=== PATIENT | female | born 1955 | race Caucasian/White ===

== ENCOUNTER 2019-06-08 21:16 | Inpatient (IN) ==
[2019-06-09] MEDS ORDERED: Naloxone 0.4 MG/ML INJ IVP PRN ×2 (06:04→10:18)
[2019-06-09] MEDS ORDERED: 0.9 % Sodium Chloride 1,000 ML IVC SCH ×2 (06:15→10:18)
[2019-06-09] MEDS ORDERED: Ondansetron 4 MG/2 ML VIAL IVP PRN ×2 (06:29→10:18)
[2019-06-09] MEDS ORDERED: Gentamicin 90 MG in 0.9 % Sodium Chloride 100 ML IVPB ONE (06:48)
[2019-06-09] MEDS ORDERED: *HR* Midazolam HCl 2 MG/2 ML VIAL ONE (07:25)
[2019-06-09] MEDS ORDERED: *HR* FentaNYL (PF) 100 MCG/2 ML VIAL ONE (07:25)
[2019-06-09] MEDS ORDERED: *HR* Propofol 200 MG/20 ML VIAL IVP ONE (07:25)
[2019-06-09] MEDS ORDERED: Ondansetron 4 MG/2 ML VIAL ONE ×2 (07:28→08:34)
[2019-06-09] MEDS ORDERED: Lidocaine -MPF 2% 2 ML VIAL ONE (07:28)
[2019-06-09] MEDS ORDERED: Isovue-300 50ML VIAL ONE (07:35)
[2019-06-09] MEDS ORDERED: Scopolamine Patch 1.5 MG PATCH.TD72 ONE (07:50)
[2019-06-09] MEDS ORDERED: Acetaminophen IV 1,000 MG/100 ML INFUS..BTL ONE (07:50)
[2019-06-09] MEDS ORDERED: *HR* Promethazine 25 MG/ML VIAL IVP PRN (07:50)
[2019-06-09] MEDS ORDERED: Morphine Sulfate 2 MG/ML SYRINGE IVP PRN (07:50)
[2019-06-09] MEDS ORDERED: cefTRIAXone 1,000 MG in Water for inj. (sterile) 10 ML IVP SCH (09:00)
[2019-06-09] MEDS ORDERED: *HR* Labetalol 20 MG/4 ML SYRINGE IVP PRN (09:15)
[2019-06-09] MEDS ORDERED: *HR* Labetalol 20 MG/4 ML SYRINGE IVP ONE (09:18)
[2019-06-09] MEDS ORDERED: Gentamicin 1 EACH in 0.9 % Sodium Chloride 100 ML IVPB SCH (10:18)
[2019-06-09] MEDS ORDERED: hydrALAZINE 25 MG TABLET PO PRN (10:18)
[2019-06-09] MEDS: Furosemide 40 MG TABLET PO SCH (10:33)
[2019-06-09] MEDS: amLODIPine 5 MG TABLET PO SCH (10:33)
[2019-06-09] MEDS: Venlafaxine XR (24 HR) 75 MG CAP.ER.24H PO SCH (10:33)
[2019-06-09] MEDS: LAMOTRIGINE PO SCH (11:33)
[2019-06-09 12:45] LABS: Hematocrit 35.7 % (35.3-44.9); Hemoglobin 12.1 g/dL (11.5-15.4); Mean Corpuscular HGB Conc 33.9 g/dL (31.6-35.5); Mean Corpuscular Hemoglobin 29.3 pg (28.0-33.3); Mean Corpuscular Volume 86.4 fL (83.0-100.0); Mean Platelet Volume 8.2 fL (9.4-12.4); Platelet Count 366 K/mcL (140-400); Red Blood Count 4.13 M/mcL (3.82-4.97); Red Cell Distribution Width 15.1 % (11.5-14.5); White Blood Count 7.1 K/mcL (4.3-11.1)
[2019-06-09 13:05] LABS: Alanine Aminotransferase 11 Units/L (7-52); Albumin 3.4 g/dL (3.5-5.7); Alkaline Phosphatase 87 Units/L (34-104); Aspartate Amino Transferase 17 Units/L (13-39); BUN/Creatinine Ratio 28 (6-26); Bilirubin,Total 0.3 mg/dL (0.3-1.0); Blood Urea Nitrogen 18 mg/dL (8-23); Calcium 8.5 mg/dL (8.6-10.3); Carbon Dioxide 22 mEq/L (23-29); Chloride 111 mEq/L (98-107); Globulin 3.5 g/dL (2.4-3.5); Glucose 109 mg/dL (70-105); Magnesium 1.7 mg/dL (1.6-2.6); Osmolality,Calculated 294 (280-300); Phosphorous 3.6 mg/dL (2.7-4.5); Potassium 3.6 mEq/L (3.5-5.1); Sodium 141 mEq/L (136-145); Total Protein 6.9 g/dL (6.4-8.9); eGFR For African Americans > 60 (> 60); eGFR For Non-African Americans > 60 (> 60)
[2019-06-09] MEDS ORDERED: GENTAMICIN IVPB ONE (13:06)
[2019-06-09] MEDS ORDERED: SODIUM CHLORIDE 0.9% IVPB ONE (13:06)
[2019-06-09] MEDS: 0.9 % Sodium Chloride 1,000 ML IVC SCH ×2 (14:34→23:32)
[2019-06-09] MEDS: Acetaminophen 325 MG TABLET PO PRN (20:05)
[2019-06-10 02:11] LABS: BUN/Creatinine Ratio 23 (6-26); Blood Urea Nitrogen 15 mg/dL (8-23); Calcium 8.2 mg/dL (8.6-10.3); Carbon Dioxide 21 mEq/L (23-29); Chloride 111 mEq/L (98-107); Glucose 80 mg/dL (70-105); Osmolality,Calculated 288 (280-300); Potassium 3.3 mEq/L (3.5-5.1); Sodium 139 mEq/L (136-145); eGFR For African Americans > 60 (> 60); eGFR For Non-African Americans > 60 (> 60)
[2019-06-10] MEDS ORDERED: cefTRIAXone 1,000 MG in 0.9 % Sodium Chloride Mini Bag 100 ML IVPB SCH (09:00)
[2019-06-10] MEDS: Venlafaxine XR (24 HR) 75 MG CAP.ER.24H PO SCH (09:50)
[2019-06-10] MEDS: Furosemide 40 MG TABLET PO SCH (09:50)
[2019-06-10] MEDS: amLODIPine 5 MG TABLET PO SCH (09:50)
[2019-06-10] MEDS: LAMOTRIGINE PO SCH (09:52)
[2019-06-10] MEDS: Acetaminophen 325 MG TABLET PO PRN ×2 (11:08→17:20)
[2019-06-10] MEDS ORDERED: *HR* LORazepam 0.5 MG TABLET PO ONE (23:25)
[2019-06-11 05:52] LABS: Basophils % 0.4 %; Eosinophils # 0.5 K/mcL (0.0-0.6); Eosinophils % 6.6 %; Hematocrit 36.4 % (35.3-44.9); Immature Granulocytes % 0.4 % (0-4); Lymphocytes # 1.9 K/mcL (0.6-4.6); Lymphocytes % 22.6 %; Mean Corpuscular Hemoglobin 29.4 pg (28.0-33.3); Mean Corpuscular Volume 89.2 fL (83.0-100.0); Mean Platelet Volume 8.8 fL (9.4-12.4); Monocytes # 0.6 K/mcL (0.0-1.3); Monocytes % 7.3 %; Neutrophils # 5.2 K/mcL (1.6-8.9); Platelet Count 325 K/mcL (140-400); Red Blood Count 4.08 M/mcL (3.82-4.97); Red Cell Distribution Width 14.6 % (11.5-14.5); Segmented Neutrophils % 62.7 %; White Blood Count 8.2 K/mcL (4.3-11.1)
[2019-06-11 06:09] LABS: BUN/Creatinine Ratio 25 (6-26); Blood Urea Nitrogen 15 mg/dL (8-23); Calcium 8.8 mg/dL (8.6-10.3); Carbon Dioxide 21 mEq/L (23-29); Chloride 107 mEq/L (98-107); Glucose 99 mg/dL (70-105); Osmolality,Calculated 289 (280-300); Potassium 3.7 mEq/L (3.5-5.1); Sodium 139 mEq/L (136-145); eGFR For African Americans > 60 (> 60); eGFR For Non-African Americans > 60 (> 60)
[2019-06-11] MEDS ORDERED: Aminoglycoside Consult 1 EACH MC ONE (07:56)
[2019-06-11] MEDS: Furosemide 40 MG TABLET PO SCH (08:38)
[2019-06-11] MEDS: amLODIPine 5 MG TABLET PO SCH (08:38)
[2019-06-11] MEDS: Venlafaxine XR (24 HR) 75 MG CAP.ER.24H PO SCH (08:38)
[2019-06-11] MEDS: LAMOTRIGINE PO SCH (08:39)
[2019-06-11] MEDS ORDERED: Gentamicin 290 MG in 0.9 % Sodium Chloride 100 ML IVPB SCH (14:00)
[2019-06-11] MEDS: Nitrofurantoin (BID) 100 MG CAPSULE PO SCH (17:35)
[2019-06-11] MEDS: Cefepime HCl 2,000 MG in Water for inj. (sterile) 20 ML IVP SCH (17:35)
[2019-06-11] MEDS: Acetaminophen 325 MG TABLET PO PRN (19:46)
[2019-06-12] MEDS: Cefepime HCl 2,000 MG in Water for inj. (sterile) 20 ML IVP SCH ×2 (05:09→07:56)
[2019-06-12] MEDS: Acetaminophen 325 MG TABLET PO PRN (05:12)
[2019-06-12 07:23] VITALS: BP 138/80
[2019-06-12] MEDS ORDERED: *HR* LORazepam 0.5 MG TABLET PO SCH (08:30)
[2019-06-12] MEDS: Nitrofurantoin (BID) 100 MG CAPSULE PO SCH ×2 (10:57→17:19)
[2019-06-12] MEDS: Furosemide 40 MG TABLET PO SCH (10:58)
[2019-06-12] MEDS: Venlafaxine XR (24 HR) 75 MG CAP.ER.24H PO SCH (10:58)
[2019-06-12] MEDS: amLODIPine 5 MG TABLET PO SCH (10:58)
[2019-06-12] MEDS ORDERED: Cefepime HCl 2,000 MG in Water for inj. (sterile) 20 ML IVP ONE (13:00)
== END 2019-06-12 18:10 | DRG 854 ==
LOC: 3ANU → SUATTDRO 06-09 01:32 → 3ANU 06-09 01:42
PROVIDERS: ADMIT Family Medicine; ATTEND Internal Medicine

== ENCOUNTER 2020-01-05 07:02 | Inpatient (IN) ==
[2020-01-05] MEDS ORDERED: Ondansetron 4 MG/2 ML VIAL IVP PRN (10:47)
[2020-01-05] MEDS ORDERED: Naloxone 0.4 MG/ML INJ IVP PRN (10:47)
[2020-01-05] MEDS ORDERED: D5% in Water 1,000 ML IVC PRN (10:51)
[2020-01-05] MEDS ORDERED: Dextrose Gel 15 GM/37.5 ML TUBE PO PRN ×2 (10:51)
[2020-01-05] MEDS ORDERED: *HR* Dextrose 50 % in Water (Vial) 50 ML VIAL IVP PRN (10:51)
[2020-01-05] MEDS ORDERED: Ringers Solution, Lactated 1,000 ML IVC SCH ×2 (11:00→11:09)
[2020-01-05] MEDS ORDERED: D5% in 0.45% NACL 1,000 ML IVC SCH (11:00)
[2020-01-05] MEDS: *HR* Labetalol 20 MG/4 ML SYRINGE IVP SCH ×2 (11:49→17:36)
[2020-01-05] MEDS: Pantoprazole 40 MG VIAL IVP SCH (11:49)
[2020-01-05 12:14] LABS: INR 0.9; Prothrombin Time 10.6 Seconds (9.4-12.1)
[2020-01-05 12:28] LABS: Alanine Aminotransferase 10 Units/L (7-52); Alkaline Phosphatase 90 Units/L (34-104); Aspartate Amino Transferase 17 Units/L (13-39); BUN/Creatinine Ratio 43 (6-26); Bilirubin,Total 0.2 mg/dL (0.3-1.0); Blood Urea Nitrogen 28 mg/dL (8-23); Calcium 8.8 mg/dL (8.6-10.3); Carbon Dioxide 21 mEq/L (23-29); Chloride 102 mEq/L (98-107); Globulin 3.9 g/dL (2.4-3.5); Glucose 198 mg/dL (70-105); Magnesium 1.7 mg/dL (1.6-2.6); Osmolality,Calculated 295 (280-300); Phosphorous 2.7 mg/dL (2.7-4.5); Potassium 3.4 mEq/L (3.5-5.1); Sodium 137 mEq/L (136-145); Total Protein 7.9 g/dL (6.4-8.9); eGFR For African Americans > 60 (> 60); eGFR For Non-African Americans > 60 (> 60)
[2020-01-05] MEDS: Insulin LISPRO 300 UNITS/3 ML VIAL SQ SCH ×2 (13:34→17:32)
[2020-01-05] MEDS ORDERED: *HR* Metoprolol 5 MG/5 ML VIAL IVP ONE (18:13)
[2020-01-06] MEDS: *HR* Labetalol 20 MG/4 ML SYRINGE IVP SCH ×4 (00:02→18:49)
[2020-01-06] MEDS: Insulin LISPRO 300 UNITS/3 ML VIAL SQ SCH ×4 (00:08→18:50)
[2020-01-06 01:13] LABS: Basophils % 0.3 %; Eosinophils % 0.3 %; Hematocrit 31.7 % (35.3-44.9); Hemoglobin 10.2 g/dL (11.5-15.4); Immature Granulocytes % 0.5 % (0-4); Lymphocytes % 19.6 %; Mean Corpuscular HGB Conc 32.2 g/dL (31.6-35.5); Mean Corpuscular Hemoglobin 26.8 pg (28.0-33.3); Mean Corpuscular Volume 83.4 fL (83.0-100.0); Mean Platelet Volume 8.6 fL (9.4-12.4); Monocytes # 0.9 K/mcL (0.0-1.3); Monocytes % 8.6 %; Neutrophils # 7.3 K/mcL (1.6-8.9); Platelet Count 422 K/mcL (140-400); Red Cell Distribution Width 14.8 % (11.5-14.5); Segmented Neutrophils % 70.7 %; White Blood Count 10.4 K/mcL (4.3-11.1)
[2020-01-06] MEDS: Pantoprazole 40 MG VIAL IVP SCH (08:15)
[2020-01-06] MEDS ORDERED: Lidocaine -MPF 2% 2 ML VIAL ONE ×2 (08:49→14:49)
[2020-01-06] MEDS ORDERED: *HR* Propofol 200 MG/20 ML VIAL IVP ONE ×2 (08:49→14:44)
[2020-01-06] MEDS ORDERED: Famotidine 20 MG/2 ML VIAL IVP ONE (09:10)
[2020-01-06] MEDS ORDERED: *HR* Succinylcholine 200 MG/10 ML VIAL IVP ONE (09:57)
[2020-01-06] MEDS ORDERED: Lidocaine -MPF 4% 5 ML AMPUL ONE (09:59)
[2020-01-06] MEDS: SODIUM CHLORIDE 0.9% IVPB SCH (18:16)
[2020-01-06] MEDS: ERYTHROMYCIN LACTOBIONATE IVPB SCH (18:16)
[2020-01-07] MEDS: ERYTHROMYCIN LACTOBIONATE IVPB SCH ×2 (00:47→07:45)
[2020-01-07] MEDS: SODIUM CHLORIDE 0.9% IVPB SCH ×2 (00:47→07:45)
[2020-01-07] MEDS: *HR* Labetalol 20 MG/4 ML SYRINGE IVP SCH ×3 (00:51→11:29)
[2020-01-07 02:29] LABS: Hematocrit 31.7 % (35.3-44.9); Hemoglobin 10.1 g/dL (11.5-15.4); Mean Corpuscular HGB Conc 31.9 g/dL (31.6-35.5); Mean Corpuscular Hemoglobin 26.9 pg (28.0-33.3); Mean Corpuscular Volume 84.5 fL (83.0-100.0); Mean Platelet Volume 8.9 fL (9.4-12.4); Platelet Count 387 K/mcL (140-400); Red Blood Count 3.75 M/mcL (3.82-4.97); White Blood Count 12.1 K/mcL (4.3-11.1)
[2020-01-07 03:39] LABS: BUN/Creatinine Ratio 30 (6-26); Blood Urea Nitrogen 17 mg/dL (8-23); Calcium 9.1 mg/dL (8.6-10.3); Carbon Dioxide 24 mEq/L (23-29); Chloride 106 mEq/L (98-107); Glucose 134 mg/dL (70-105); Osmolality,Calculated 302 (280-300); Sodium 144 mEq/L (136-145); eGFR For African Americans > 60 (> 60); eGFR For Non-African Americans > 60 (> 60)
[2020-01-07] MEDS: Pantoprazole 40 MG VIAL IVP SCH (07:45)
[2020-01-07] MEDS: Insulin LISPRO 300 UNITS/3 ML VIAL SQ SCH ×2 (07:53→11:17)
[2020-01-07] MEDS ORDERED: Potassium Chloride Elixir 20 MEQ/15 ML UDC PO ONE (08:35)
[2020-01-07 10:43] VITALS: BP 145/77
[2020-01-07] MEDS ORDERED: Furosemide 20 MG/2 ML VIAL IVP ONE (11:49)
[2020-01-07] MEDS ORDERED: Insulin LISPRO 300 UNITS/3 ML VIAL SQ SCH (21:00)
[2020-01-08] MEDS ORDERED: amLODIPine 5 MG TABLET PO SCH (08:30)
== END 2020-01-07 14:07 | DRG 392 ==
LOC: 3ANU → SUATTDRO 01-06 11:27
PROVIDERS: ADMIT Internal Medicine; ATTEND Internal Medicine